=== PATIENT | female | born 1965 | race Caucasian/White ===

== ENCOUNTER 2019-03-20 18:28 | Inpatient (IN) ==
[2019-03-20] MEDS ORDERED: DUONEB (A & A) INH ONE ×2 (19:00→21:58)
[2019-03-20 19:05] LABS: INFLUENZA A NEGATIVE (NEGATIVE); INFLUENZA B NEGATIVE (NEGATIVE)
--- NOTE | 2019-03-20 19:19 | PROVIDER DOCUMENTATION ---
HPI-Respiratory General - General Chief Complaint: Asthma Attack Stated Complaint: FEVER SX Time Seen by Provider: 03/20/19 18:48 Source: patient Allergies/Adverse Reactions: Patient Allergies Allergy/AdvReac Type Severity Reaction Status Date / Time Penicillins Allergy Severe ANAPHYLAXIS Verified 02/09/19 01:38 egg Allergy Intermediate RASH Verified 02/09/19 01:38 moxifloxacin HCl * Allergy Intermediate SWELLING Verified 02/09/19 01:38 [From Avelox] peanut Allergy Intermediate HIVES Verified 02/09/19 01:38 naproxen sodium * Allergy Mild RASH Verified 02/09/19 01:38 [From Aleve] acetaminophen [From [place]] Allergy RASH Verified 02/09/19 01:38 ciprofloxacin [From Cipro] Allergy RASH Verified 02/09/19 01:38 hydrocodone bitartrate * Allergy VOMITING Verified 02/09/19 01:38 [From [place]] levofloxacin [From Levaquin] Allergy VOMITING Verified 02/09/19 01:38 pseudoephedrine HCl * Allergy DIARRHEA Verified 02/09/19 01:38 [From Sudafed] Home Medications: Home Medication List Medication Instructions Recorded Confirmed Last Taken Type Hydroxyzine HCl 25 mg PO DAILY 11/16/15 01/03/19 11/06/16 History Montelukast Sodium 10 mg PO DAILY 11/16/15 01/03/19 11/06/16 History Albuterol Sulfate Inhaler 2 puff INH Q6H PRN PRN #1 inhaler 01/03/19 Unknown Rx [Ventolin Hfa] Budesonide/Formoterol Fumarate 2 puff INHALATION BID 01/03/19 01/03/19 Unknown History [Symbicort 160-4.5 Mcg Inhaler] Albuterol Sulfate Inhaler 2 puff INHALATION Q4H PRN #1 02/09/19 Unknown Rx [Ventolin Hfa] inhaler Azithromycin [Zithromax] 250 mg PO DAILY #4 tab 02/09/19 Unknown Rx Gabapentin 400 mg PO DAILY 02/09/19 02/09/19 Unknown History Methocarbamol [Robaxin-750] 750 mg PO BID 02/09/19 02/09/19 Unknown History Prednisone 10 mg PO DAILY #21 tab 02/09/19 Unknown Rx - History of Present Illness-Resp Nature of Presenting Problem: 54 YOF PRESENTS WITH C/O SOB, WHEEZING, COUGH WITH GREEN SPUTUM, SORE THROAT, BODY ACHES. + SMOKER Quality of Pain: reports: aching Severity in ED: reports: moderate Onset/Duration: reports: 24 hours ago Timing: reports: still present Exposure: reports: unknown cause Cough Quality/Degree: reports: moderate, productive cough Episode Frequency: occasional episodes Current Respiratory Medication Therapy: Initiated none Modifying Factors: improves with: oxygen, rest. worse with: exertion, coughing Associated Symptoms: reports: cough, flu-like symptoms, shortness of breath Similar Symptoms Previously?: Yes Recently seen or treated by another doctor?: No Review of Systems - Adult - REVIEW OF SYSTEMS - ADULT Constitutional: reports: no symptoms reported. denies: see HPI, chills, fever, fatique, night sweats, weight gain, weight loss, other Eyes: reports: no symptoms reported. denies: see HPI, discharge, dry eyes, decreased vision, blurred vision, double vision, eye pain, redness, other Ears, Nose, Mouth & Throat: reports: see HPI, throat pain. denies: no symptoms reported, ear discharge, ear pain, hearing loss, tinnitus, epistaxis, sinus problem, nose pain, loose teeth, mouth/dental pain, mouth swelling, hoarseness, throat swelling, other Cardiovascular: reports: no symptoms reported. denies: see HPI, chest pain, edema, heart murmur, irregular heart rate, orthopnea, palpitations, poor circulation, PND, syncope, other Respiratory: reports: see HPI, cough, shortness of breath, wheezing Gastrointestinal: reports: no symptoms reported. denies: see HPI, abdominal pain, hematemesis, constipation, diarrhea, difficulty swallowing, frequent heartburn, nausea, poor appetite, rectal bleeding, vomiting, other Genitourinary: reports: no symptoms reported. denies: see HPI, dysuria, discharge, frequency, flank pain, frequent UTI's, hematuria, hesitency, incontinence, urinary retention, urgency, other Musculoskeletal: reports: no symptoms reported. denies: see HPI, bone pain, back pain, frequent leg cramps, joint pain, joint swelling, muscle aches, muscle weakness, neck pain, other Integumentary: reports: no symptoms reported. denies: see HPI, hives, hair lo ss, itching, mole changes, nail changes, rash, skin sores/ulcer, skin thickening, other Neurological: reports: no symptoms reported. denies: see HPI, ataxia, dizziness/vertigo, headache/migraines, loss of balance, numbness, paresthesia, seizure, slurred speech, syncope, tremors, other Psychiatric: reports: no symptoms reported. denies: see HPI, anxiety, anti- depressant use, alcohol/drug dependence, depression, emotional problems, insomnia, panic attacks, suicidal thoughts, other Endocrine: reports: no symptoms reported. denies: see HPI, change in skin pigment, excessive sweating, goiter, cold intolerance, heat intolerance, increased hunger, increased thirst, polyuria, other Hematologic/Lymphatic: reports: no symptoms reported. denies: see HPI, blood clots, easy bruising, low blood count, lymphedema, prolonged bleeding, swollen lymph nodes, transfusions, other Allergic/Immunologic: reports: no symptoms reported. denies: see HPI, allergic reactions, allergic rhinitis, asthma, eczema, food allergy, frequent infections, hay fever, hives, positive PPD, urticaria, other Past History - Adult - PAST MEDICAL HISTORY-ADULT Review of Records: reports: Nursing Assessment Review, Social history reviewed & non-contributory. Major Childhood Illnesses: reports: denies history Cardiovascular: reports: hyperlipidemia Respiratory: reports: asthma, COPD Gastrointestinal: reports: denies history Obstetrical/Gynecological: reports: denies history Genitourinary: reports: kidney disease Musculoskeletal: reports: chronic pain Neurological: reports: denies history Psychiatric: reports: depression, other (ADD) Endocrine/Immune: reports: denies history Other Conditions: reports: denies history Additional History: Johnny disease - PRIOR SURGERIES/PROCEDURES Surgical/Procedure History: reports: hysterectomy, , orthopedic (extremity) (left elbow repair) - PRIOR HOSPITALIZATIONS Prior Hospitalizations: reports: psychiatric or rehab, other (asthma) - IMMUNIZATION STATUS Childhood Immunizations: UTD Flu Vaccine: NUTD - FAMILY HISTORY Family History: reviewed, not pertinent Physical Exam-General - PHYSICAL EXAM-ADULT Initial Vital Signs Reviewed: Yes - CONSTITUTIONAL General Appearance: alert, mild distress - EYES Eyes: PERRL/EOMI - HEAD, EARS, NOSE, MOUTH & THROAT HENMT: normocephalic/atraumatic, moist mucous membranes, normal ENT inspection - NECK Neck: non-tender, full range of motion, supple - RESPIRATORY Respiratory: chest non-tender, no accessory muscle use, crackles, wheezing. negative: no respiratory distress - CARDIOVASCULAR Cardiovascular: normal peripheral pulses, regular rate, rhythm, no edema, no gallop, no JVD, no murmur - GASTROINTESTINAL (ABDOMEN) Abdominal Exam: normal bowel sounds, non tender, soft, no organomegaly, no pulsatile mass - LYMPHATIC Lymphatic: no adenopathy - MUSCULOSKELETAL Back Exam: normal inspection, no CVA tenderness, no vertebral tenderness Extremity: normal range of motion, non-tender, normal gait Peripheral Pulses: radial (R): 2+, radial (L): 2+ - SKIN Integumentary: normal color, normal turgor, warm/dry - NEUROLOGIC Neurologic: grossly normal - PSYCHIATRIC Psych/Mental Status: normal mood/affect, oriented x 3 Progress - PLAN OF CARE/RESULTS Progress/Plan/Lab Results: Vital Signs - 8 hr 03/20/19 18:31 03/20/19 19:12 Temperature 99.2 F Pulse Rate 132 H 12 L Respiratory Rate 20 20 Blood Pressure 153/81 O2 Sat by Pulse Oximetry 97 93 L Laboratory Results - last 24 hr 03/20/19 03/20/19 03/20/19 18:36 18:36 19:56 WBC RBC Hgb Hct MCV MCH MCHC RDW Std Deviation Plt Count MPV Immature Gran % (Auto) Neut % (Auto) Lymph % (Auto) Lamb % (Auto) Eos % (Auto) Baso % (Auto) Immature Gran # (Auto) Neut # (Auto) Lymph # (Auto) Lamb # (Auto) Eos # (Auto) Baso # (Auto) D-Dimer, Quantitative 0.39 Sodium Potassium Chloride Carbon Dioxide Anion Gap BUN Creatinine Estimated GFR/1.73 m2 BUN/Creatinine Ratio Glucose Calculated Osmolality Calcium Total Bilirubin AST ALT Total Protein Albumin Globulin Albumin/Globulin Ratio Plasma Lactate Influenza A (Rapid) NEGATIVE Influenza B (Rapid) NEGATIVE Group A Strep Rapid NEGATIVE 03/20/19 03/20/19 03/20/19 19:56 19:56 19:56 WBC 16.62 H RBC 5.07 Hgb 14.7 Hct 45.3 MCV 89.3 MCH 29.0 MCHC 32.5 L RDW Std Deviation 14.4 Plt Count 297 MPV 10.2 Immature Gran % (Auto) 0.2 Neut % (Auto) 80.0 H Lymph % (Auto) 12.1 L Lamb % (Auto) 7.4 Eos % (Auto) 0.2 Baso % (Auto) 0.1 Immature Gran # (Auto) 0.03 Neut # (Auto) 13.30 H Lymph # (Auto) 2.01 Lamb # (Auto) 1.23 H Eos # (Auto) 0.03 Baso # (Auto) 0.02 D-Dimer, Quantitative Sodium 136 Potassium 4.3 Chloride 96 L Carbon Dioxide 27 Anion Gap 13 BUN 16 Creatinine 1.1 H Estimated GFR/1.73 m2 52 BUN/Creatinine Ratio 15 Glucose 101 Calculated Osmolality 273 Calcium 9.2 Total Bilirubin 0.50 AST 14 ALT 11 Total Protein 7.8 Albumin 4.2 Globulin 4.0 Albumin/Globulin Ratio 1.0 Plasma Lactate 0.8 Influenza A (Rapid) Influenza B (Rapid) Group A Strep Rapid Orders Category Date Time Status CHEST-2 VIEWS [RAD] Stat Exams 03/20/19 18:38 Completed BC [BLOOD CULTURE] [BLDCUL] Stat Lab 03/20/19 20:07 Ordered CBC WITH ELECTRONIC DIFF [HEME] Stat Lab 03/20/19 19:56 Completed COMPREHENSIVE METABOLIC PANEL [CHEM] Stat Lab 03/20/19 19:56 Results D-DIMER [COAG] Stat Lab 03/20/19 19:[address] Stat Lab 03/20/19 18:36 Completed Flu [INFLUENZA SCREEN PL] Stat Lab 03/20/19 18:36 Completed LACTATE, PLASMA [CHEM] Stat Lab 03/20/19 19:56 Completed TROPONIN T HIGH SENSITIVITY Stat Lab 03/20/19 19:56 Received 0.9% Sodium Chloride Inj [Ns] 1,000 ml Med 03/20/19 20:12 Discontinued IV 999 mls/hr Albuterol 2.5MG/Ipratrop 0.5MG [Duoneb (A & A)] Med 03/20/19 19:00 Discontinued 3 ml INH NOW ONE Doxycycline 100 mg Med 03/20/19 20:12 Active 0.9% Sodium Chloride Inj [Ns] 250 ml IV NOW Methylprednisolone Sod Succ [Solu-Medrol] Med 03/20/19 20:19 Discontinued 80 mg IV NOW ONE Nicotine Patch [Nicoderm Patch] Med 03/20/19 20:19 Discontinued 21 mg TD NOW ONE Aerosol Treatments Routine Oth 03/20/19 19:01 Completed Aerosol Treatments Stat Oth 03/20/19 19:01 Completed EKG [EKG] Stat Ther 03/20/19 19:01 Ordered 2134: unable to obtain ABG x 3 sticks, will cancel order Result Diagrams: 03/20/19 19:56 03/20/19 19:56 - EKG 1 Time of EKG reading by physician:: 01:15 EKG Read and Signed by:: Miguel Ángel Maldonado EKG Interpretation (*Must complete 3 of following elements*): Abnormal Rate: 115 Rhythm: st [place]: left QRS: other (low voltage, possible l atrial enlargement) MD Interval: normal ST Wave: non-specific ST changes Prior EKG Comparison: unchanged from prior - XRAY 1 XRAY Study: Chest Impression: See EMR Report (EXAM: CHEST-2 VIEWS HISTORY: ASTHM COUGH FEVER TECHNIQUE: Two views COMPARISON: 02/09/2019 FINDINGS: The lungs are hyperexpanded. The heart is not enlarged. The vessels are not distended. There are mild increased interstitial markings in the lung bases. No pleural effusions. IMPRESSION: Tiny basilar infiltrates Electronically signed by Fito Clark 03/20/2019 7:41 PM 03/20/191940 Interpreting Physician: Fito Clark MD Dictated Date/Time: 03/20/191939 cc: Andrew Cota MD; None,PCP) - CONSULTS/PCP/HOSPITALIST Notification #1 *Consult/PCP/Hospitalist*: DR. MICHEL Time Discussed: 20:40 Consult Disposition: Admit Departure - Departure Date of Disposition Decision: 03/20/19 Time of Disposition Decision: 20:41 DIAGNOSIS: COPD (chronic obstructive pulmonary disease), Pneumonia, CKD (chronic kidney disease), Hypoxia Disposition: ADMITTED INPATIENT 09 Certified Medical Emergency: Emergent Condition: Stable Referrals and Follow-Ups: None,PCP [Primary Care Provider] - - Critical Care Note This patient required my direct & personal management of CC.: No Attestation - Physician/ BLU Attestation Patient care was provided by Advanced Practice Provider:: Yes Advanced Practice Provider:: Janessa Burks Advanced Practice Provider documentation review:: The Mid-level provider documentation, treatment plan and medical decision making was reviewed by the physician who agrees with all treatment and medical decision making by the [facility]. The physician spent face to face time with patient:: No Advanced Practice Provider documentation review:: Supervising physician onsite and consulted in the evaluation and care of this patient. The physician did not have a face to face encounter with the patient.
--- NOTE | 2019-03-20 19:43 | Diag Imaging Result Doc PS360 ---
EXAM: CHEST-2 VIEWS HISTORY: ASTHM COUGH FEVER TECHNIQUE: Two views COMPARISON: 02/09/2019 FINDINGS: The lungs are hyperexpanded. The heart is not enlarged. The vessels are not distended. There are mild increased interstitial markings in the lung bases. No pleural effusions. IMPRESSION: Tiny basilar infiltrates Electronically signed by Fito lCark 03/20/2019 7:41 PM
[2019-03-20] MEDS ORDERED: DOXYCYCLINE 100 MG in NS 250 ML IV ONE (20:12)
[2019-03-20] MEDS ORDERED: NS 1,000 ML IV ONE ×2 (20:12→22:10)
[2019-03-20 20:15] LABS: BASO# 0.02 X1000 (0.0-0.2); BASO% 0.1 % (0.0-0.8); EOS# 0.03 X1000 (0.0-0.7); EOS% 0.2 % (0.0-10.0); HEMATOCRIT 45.3 % (37.0-47.0); HEMOGLOBIN 14.7 g/dL (12.0-16.0); IMM GRAN# 0.03 X1000 (0.0-0.04); IMM GRAN% 0.2 % (0.0-0.5); LYMPH# 2.01 X1000 (1.2-3.4); LYMPH% 12.1 % (20.5-51.1); MCHC 32.5 g/dL (33-37); MCV 89.3 FL (81-99); MONO# 1.23 X1000 (0.11-0.59); MONO% 7.4 % (1.7-9.3); MPV 10.2 FL (7.4-10.4); PLT 297 X1000 (130-400); RBC 5.07 XMIL (4.2-5.4); RDW 14.4 % (11.5-14.5); WBC 16.62 X1000 (4.8-10.8)
[2019-03-20] MEDS ORDERED: SOLU-MEDROL IV ONE (20:19)
[2019-03-20] MEDS ORDERED: NICODERM PATCH TD ONE (20:19)
[2019-03-20 20:34] LABS: ALBUMIN 4.2 g/dL (3.5-5.0); CALCIUM 9.2 mg/dL (8.8-10.2); CREATININE 1.1 mg/dL (0.5-0.9); POTASSIUM 4.3 mmol/L (3.5-5.1); TOTAL BILIRUBIN 0.5 mg/dL (0.20-1.00); TOTAL PROTEIN 7.8 g/dL (6.3-8.3)
[2019-03-20] MEDS: DUONEB (A & A) INH SCH (23:30)
[2019-03-21] MEDS ORDERED: DUONEB (A & A) INH PRN (00:22)
[2019-03-21] MEDS: SOLU-MEDROL IV SCH ×3 (04:27→19:46)
[2019-03-21] MEDS: DUONEB (A & A) INH SCH ×6 (04:30→23:08)
[2019-03-21] MEDS ORDERED: NORCO-5 PO ONE (04:42)
--- NOTE | 2019-03-21 05:08 | EKG Report ---
Test Performed on : 03/20/2019 9:49:08 PM Test Reason : SOB Blood Pressure : / mmHG Vent. Rate : 115 BPM Atrial Rate : 115 BPM P-R Int : 144 ms QRS Dur : 064 ms QT Int : 302 ms P-R-T Axes : 074 -49 080 degrees QTc Int : 417 ms Sinus tachycardia. Possible Left atrial enlargement Left axis deviation Low voltage QRS Possible Inferior infarct , age undetermined Cannot rule out Anteroseptal infarct (cited on or before 20-MAR-2016) Abnormal ECG When compared with ECG of 09-FEB-2019 00:51, (Unconfirmed) fusion complexes are no longer present premature ventricular complexes. are no longer present Left posterior fascicular block is no longer present Questionable change in initial forces of Anterior leads Unconfirmed Result
[2019-03-21] MEDS: DOXYCYCLINE 100 MG in NS 250 ML IV SCH ×2 (07:28→19:46)
[2019-03-21] MEDS: NEURONTIN PO SCH (10:01)
[2019-03-21] MEDS: SINGULAIR PO SCH (10:01)
--- NOTE | 2019-03-21 19:13 | HISTORY AND PHYSICAL ---
CHIEF COMPLAINT: Wheezing, sore throat, body aches. HISTORY OF PRESENT ILLNESS: This is a 54-year-old female with a prior history of Bright's disease, asthma and COPD on home O2. She presents to the emergency room complaining of shortness of breath, wheezing, fevers, and a productive cough with green secretions that started about 24 hours prior. She states symptoms have increased despite using her home inhalers prompting her ER visit. On arrival to the emergency room, she was noted to have a temperature of 99 degrees with workup revealed COPD exacerbation with pneumonia. PAST MEDICAL HISTORY: 1. COPD. 2. Dyslipidemia. 3. Chronic back pain. 4. Diabetes mellitus type 2. 5. 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 6. History of alcohol syndrome. PAST SURGICAL HISTORY: Left elbow surgery, bilateral elbow surgeries, hysterectomy, and x4. SOCIAL HISTORY: She is , has 4 children. She has a history of tobacco abuse. She stopped about 4 or 5 years ago. She denies alcohol, tobacco, or illicit drug use. FAMILY HISTORY: Positive for diabetes mellitus, as well as COPD. REVIEW OF SYSTEMS: Discussed with patient with pertinent positives stated in the HPI. She denied any syncope or dizziness, any chest pain or palpitations, any hemoptysis, any nausea, vomiting, diarrhea, constipation, black or bloody vomitus or stools, any hematuria dysuria frequency urgency. PHYSICAL EXAMINATION: GENERAL: This is a 54-year-old female who is sitting up on the bed on the medical-surgical floor in no distress. EYES: Pupils are equal, round, react to light. EOMs are intact. Sclerae are anicteric. HEENT: Head is normocephalic, atraumatic. Mucous membranes are moist. NECK: Supple with trachea midline. CARDIOVASCULAR: Regular rate and rhythm. S1 and S2 are appreciated. She has no lower extremity edema. Calves are nontender bilateral with peripheral pulses palpable x4 extremities. PULMONARY: She does have some scattered faint expiratory wheezes. Chest rises and falls symmetric with respiration. Chest wall is nontender to palpation. GASTROINTESTINAL: Abdomen is soft, nontender, nondistended with bowel sounds in all 4 quadrants. GENITOURINARY: No CVA or suprapubic tenderness. NEUROLOGIC: She is alert and oriented x3. SKIN: Warm and dry. LABS: WBC is 16 with hemoglobin 14.7, hematocrit 45.3, platelets 297,000. D-dimer is 0.39. Sodium 136, potassium 4.3, BUN 16, creatinine 1.1 with a glucose of 101. Influenza A and B and group A strep were all negative. Blood cultures and throat culture are pending. Chest x-ray reveals basilar infiltrates. ASSESSMENT AND PLAN: 1. Pneumonia. 2. Chronic obstructive pulmonary disease, acute exacerbation. 3. Hypoxemia. 4. Chronic kidney disease. It looks like a baseline creatinine of 1.2. 5. Diabetes mellitus type 2. 6. 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 PLAN: The patient has been admitted to the medical-surgical floor and placed on telemetry, which we will continue. We will give supplemental oxygen as needed. Start incentive spirometer q.4 hours. We will order for the patient to be up in the chair t.i.d. with meals and p.r.n.. Blood cultures are pending. We will continue doxycycline, antibiotics as well as bronchodilators and steroids. We will identify her home medications and continue these as is appropriate. Check a CBC and a BMP and magnesium in the morning. She will be placed on pattern blood glucose with sliding scale insulin. The plan was discussed with Dr. Duran. Further treatments pending hospital course. Dictated by SUZY Griffin for Hardeep Duran MD cc: SUZY Griffin MD
[2019-03-21] MEDS: SYMBICORT 160/4.5 MICROGM INHALER INH SCH (19:58)
[2019-03-21] MEDS ORDERED: NICODERM PATCH TD PRN (20:30)
[2019-03-21] MEDS: ROBAXIN PO SCH (21:52)
--- NOTE | 2019-03-21 23:39 | HISTORY AND PHYSICAL ---
SUBJECTIVE: Patient presented to the hospital with increased cough, congestion with [*]sputum, sore throat, body aches. Does have a history of asthma. White count is elevated at 16. We are going to admit her to the hospital, treat her for a COPD exacerbation, place on antibiotics for her pneumonia and we will follow. cc: Hardeep Duran MD
[2019-03-22] MEDS: SOLU-MEDROL IV SCH ×3 (03:09→19:01)
[2019-03-22] MEDS: DUONEB (A & A) INH SCH ×6 (03:29→22:47)
[2019-03-22 06:57] LABS: AGAP 11; ALBUMIN 3.4 g/dL (3.5-5.0); ALKALINE PHOSPHATASE 92 U/L (32-104); BUN 18 mg/dL (8-22); CALCIUM 8.7 mg/dL (8.8-10.2); CHLORIDE 106 mmol/L (98-107); COSMO 286; ESTIMATED GFR 58; GLUCOSE 145 mg/dL (70-104); GOT 16 U/L (10-30); GPT 15 U/L (10-36); HEMATOCRIT 42.9 % (37.0-47.0); HEMOGLOBIN 13.3 g/dL (12.0-16.0); MAGNESIUM 1.8 mg/dL (1.5-2.7); MCH 28.2 PG (27-31); MCV 90.9 FL (81-99); MPV 10.5 FL (7.4-10.4); POTASSIUM 4.8 mmol/L (3.5-5.1); RBC 4.72 XMIL (4.2-5.4); RDW 14.4 % (11.5-14.5); SODIUM 141 mmol/L (136-145); TCO2 24 mmol/L (25-35); TOTAL BILIRUBIN < 0.15 mg/dL (0.20-1.00); TOTAL PROTEIN 6.8 g/dL (6.3-8.3); WBC 20.79 X1000 (4.8-10.8)
[2019-03-22] MEDS ORDERED: ZOFRAN IV PRN (07:03)
[2019-03-22] MEDS ORDERED: TYLENOL PO PRN (07:03)
[2019-03-22] MEDS: SYMBICORT 160/4.5 MICROGM INHALER INH SCH ×2 (07:38→19:54)
[2019-03-22] MEDS: ROCEPHIN 1 GM in NS 50 ML IV SCH (08:30)
[2019-03-22] MEDS: NEURONTIN PO SCH (10:20)
[2019-03-22] MEDS: DOXYCYCLINE PO SCH ×2 (10:20→20:36)
[2019-03-22] MEDS: SINGULAIR PO SCH (10:21)
[2019-03-22] MEDS: ROBAXIN PO SCH ×2 (10:21→20:36)
--- NOTE | 2019-03-22 10:40 | Diag Imaging Result Doc PS360 ---
EXAM: XRAY PELVIS W/HIP 2-3VW LT HISTORY: pain TECHNIQUE: Three views COMPARISON: None. FINDINGS: No fracture or dislocation is appreciated. The joint space is maintained. There is mild symmetrical sclerosis involving the humeral heads. This may be seen with avascular necrosis. If clinically at risk consider MRI for further evaluation. No obvious subchondral collapse. There is a left L5/S1 assimilation joint. IMPRESSION: Bilateral femoral head sclerosis may indicate avascular necrosis in the appropriate clinical setting. Consider MRI if indicated. Electronically signed by Yvrose Sheppard 03/22/2019 10:37 AM
--- NOTE | 2019-03-22 19:58 | PROGRESS NOTE ---
DATE: 03/22/2019 SUBJECTIVE: Patient has multiple complaints today although none of them appear to be medical. She is quite irritated that she only got 1 serving of grits instead of 2. She also seems to be somewhat angry that dietary is unable to make the yogurt parfait that she prefers. Regardless that she notes that her breathing is better. PHYSICAL: Temperature 98, pulse 100, respiratory rate 18, BP 109/58, she currently is on 4 L per nasal cannula.HEENT: Normocephalic. Neck: Supple. CV: Regular rate. Chest: Much improved. She is able to talk much better today without having to stop to breathe. She has minimal wheezing. Abdomen: Soft, nondistended. Extremities: Moves all extremities. ASSESSMENT: 1. Pneumonia . 2. Acute hypoxic respiratory failure. We are going to continue to try to wean her oxygen. 3. Leukocytosis. 4. Chronic obstructive pulmonary disease with acute exacerbation currently on Solu-Medrol . 5. Bright's disease . 6. Chronic kidney disease. PLAN: We are going continue patient in the hospital, continue to follow, further orders as needed, continue to wean oxygen. Hopefully if she is able to wean off her oxygen she can possibly discharge home tomorrow. Discussed that she should continue to increase her oxygen on her own. It appears that she has been increasing her flow to 4 -5 liters at times. We will continue to try to wean. Overall lung exam is much improved. cc: Hardeep Duran MD MTDD
[2019-03-22] MEDS: ATARAX PO PRN (20:44)
[2019-03-23] MEDS: DUONEB (A & A) INH SCH ×6 (03:00→23:08)
[2019-03-23] MEDS: SOLU-MEDROL IV SCH (03:09)
[2019-03-23] MEDS: SYMBICORT 160/4.5 MICROGM INHALER INH SCH ×2 (07:58→19:52)
[2019-03-23] MEDS: NEURONTIN PO SCH (08:17)
[2019-03-23] MEDS: ROCEPHIN 1 GM in NS 50 ML IV SCH ×2 (08:17→08:26)
[2019-03-23] MEDS: SINGULAIR PO SCH (08:17)
[2019-03-23] MEDS: DOXYCYCLINE PO SCH ×2 (08:18→20:52)
[2019-03-23] MEDS: ROBAXIN PO SCH ×2 (08:18→20:52)
[2019-03-23] MEDS ORDERED: CHLORASEPTIC SPRAY MT PRN (08:36)
[2019-03-23] MEDS ORDERED: ZOFRAN ODT PO PRN (08:40)
[2019-03-23] MEDS: OMNICEF PO SCH ×2 (09:30→20:52)
[2019-03-23] MEDS: PREDNISONE PO SCH ×2 (09:30→20:52)
[2019-03-23] MEDS ORDERED: SOLU-MEDROL IV SCH (15:00)
[2019-03-23] MEDS: ATARAX PO PRN (20:52)
[2019-03-23] MEDS ORDERED: SINGULAIR PO SCH (21:00)
--- NOTE | 2019-03-23 23:00 | PROGRESS NOTE ---
DATE: 03/23/2019 SUBJECTIVE: Patient notes that her breathing has improved. She is still on oxygen. Denies any fevers or chills. Cough is improved. Unfortunately, she seems to be a somewhat confused individual at times. She states that she is vegan but she can be eat chicken and fish. She is quite agitated this morning, in fact, somewhat over the top angry as she is yelling at staff because she cannot have pancakes, although she has previously stated that she has a severe allergy to a eggs. Now, she is stating that she can eat cooked eggs. PHYSICAL EXAMINATION: Vital signs: Temperature 97.4, pulse 103, respiratory 18, BP elevated this morning as she is agitated, O2 saturation 84% on room air, 94% on 2 L. General: She is awake. She is in minimal respiratory distress as she is able to vocalize quite loudly her inability to understand what eating cooked eggs has due with her egg allergy. HEENT: Normocephalic. Neck: Supple. Cardiovascular: Mild tachycardia. Chest: Much better air movement. Minimal wheezing. Extremities: Moves all extremities. Neurologic: No changes. ASSESSMENT: 1. Pneumonia. 2. Acute hypoxic respiratory failure. 3. 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 4. Chronic obstructive pulmonary disease with exacerbation. 5. Leukocytosis. PLAN: The patient overall has improved. We are going to continue to wean her Solu-Medrol. Continue to wean her oxygen. Hopefully home over the next 1 or 2 days. Unsure of what she is actually allergic to as it seems to change. Her lungs at improving. She continues to as to go home. cc: Hardeep Duran MD [facility]
[2019-03-24] MEDS: DUONEB (A & A) INH SCH ×2 (04:29→07:29)
[2019-03-24 06:39] VITALS: BP 128/82
[2019-03-24] MEDS: SYMBICORT 160/4.5 MICROGM INHALER INH SCH (07:29)
[2019-03-24] MEDS: NEURONTIN PO SCH (08:35)
[2019-03-24] MEDS: DOXYCYCLINE PO SCH (08:35)
[2019-03-24] MEDS: OMNICEF PO SCH (08:35)
[2019-03-24] MEDS: PREDNISONE PO SCH (08:35)
[2019-03-24] MEDS: ROBAXIN PO SCH (08:35)
--- NOTE | 2019-03-25 11:21 | DISCHARGE SUMMARY ---
ADMISSION DATE: 03/20/2019 DISCHARGE DATE: 03/24/2019 ADMITTING DIAGNOSES: 1. Pneumonia. 2. Chronic obstructive pulmonary disease with acute exacerbation. 3. Hypoxemia. 4. Chronic kidney disease. 5. Diabetes mellitus type 2. 6. History of Bright's disease. DISCHARGE DIAGNOSES: 1. Pneumonia. 2. Acute hypoxic respiratory failure. 3. 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 4. Chronic obstructive pulmonary disease with exacerbation. 5. Leukocytosis. PROCEDURES AND FINDINGS: Chest x-ray done on 03/20/2019 shows tiny basilar infiltrates. Pelvis x- ray done on 03/22/2019 shows bilateral femoral head sclerosis may indicate avascular necrosis in the appropriate clinical setting. HOSPITAL COURSE: This is a 54-year-old female who presents to the ER with shortness of breath, wheezing, fevers, and productive cough with green sputum for the past 24 hours. The patient was admitted to the medical floor, was noted to have pneumonia and a COPD exacerbation. White blood cell count was noted to be 16. Blood cultures and throat cultures are pending. Chest x-ray revealed basilar infiltrates. The patient was started on supplemental O2, incentive spirometer, doxycycline, bronchodilators, and steroids. The patient was noted to have chronic kidney disease due to Bright's disease, and sees Dr. Palomo. Oxygen was weaned. Condition did continue to improve. Solu-Medrol was weaned. The patient is being discharged home today. The patient will continue on doxycycline and Omnicef p.o. with oral prednisone. The patient will follow up with her primary care physician, Dr. Pool Mack, in 1 to 2 weeks, or sooner if needed. DISCHARGE MEDICATIONS: 1. Loteprednol eyedrops 10 mL drop suspension 1 drop to both eyes b.i.d. 2. Gabapentin 400 mg p.o. daily. 3. Hydroxyzine 25 mg p.o. daily. 4. Montelukast 10 mg p.o. daily. 5. Robaxin 750 mg p.o. b.i.d. 6. Spiriva 4 grams inhaled b.i.d. 7. Budesonide formoterol 2 puffs inhaled b.i.d. 8. Doxycycline 100 mg p.o. b.i.d. 9. Albuterol and Atrovent inhaled routine every 4 hours p.r.n. 10. Omnicef 300 mg p.o. b.i.d. 11. Prednisone 10 mg p.o. daily. 12. Albuterol sulfate inhaler 2 puffs inhaled every 6 hours p.r.n. DISCHARGE DIET: The patient is to resume diet as tolerated. DISCHARGE ACTIVITY: The patient is resume activity as tolerated. DISCHARGE DISPOSITION: The patient is discharged home, self-care. FOLLOWUP: The patient is to follow up with his primary care physician, Dr. Pool Mack, in 1 to 2 weeks, or sooner if needed. For any other questions or concerns, the patient is to notify her primary care physician, Dr. Pool Mack. Dictated by SUZY Tineo for Hardeep Duran MD cc: MD Pool Teran MD
--- NOTE | 2019-03-25 21:32 | DISCHARGE SUMMARY ---
ADMISSION DATE: 03/20/2019 DISCHARGE DATE: 03/24/2019 ADDENDUM: Patient seen and examined by myself. Full note dictated and discussed with nurse practitioner. Discussed with the patient on discharge, she does have abnormal bilateral hip x-rays and was instructed to follow up outpatient, although she has seen ortho in the past and declined any of their suggestions. SUBJECTIVE: Patient presented to the hospital with increased wheezing, shortness of breath, sore throat. Was placed on oxygen, breathing treatments. She did have a short period where she she was on 5 L of oxygen, but that appears to be only when she increased her oxygen herself. Currently, as her pneumonia has improved, we have been able to wean her off oxygen and her sats are good on room air. Because she did required oxygen, we were able to talk her into staying overnight to make sure that she does not require oxygen when sleeping. She reluctantly agreed. Thankfully, she did not require any further oxygen overnight and therefore we will allow her to go home on antibiotics, steroids, and nebs. She does have Bright's disease but as for kidney failure, thankfully, this was not problematic while she was in the hospital. On discharge she is awake, alert. She is in no current respiratory distress. She continues to improve. Is able to talk in complete sentences and ambulate normally. Therefore, we will discharge her home. Please see full note. cc: Hardeep Duran MD [facility]
== END 2019-03-24 12:00 | disposition home or self-care (01) | DRG 190 ==
LOC: P.ED 18:28 → P.EDIPHOLD 03-21 00:26 → P.MEDSURG 03-21 07:48
PROVIDERS: ATTEND Family Medicine